=== PATIENT | male | born 1995 | race Caucasian/White ===

== ENCOUNTER 2022-10-13 00:27 | Emergency (ER) | payer OTHER ==
[~2022-10-13] VITALS: Ht 180.3 cm; Wt 61.3 kg
[2022-10-13] MEDS ORDERED: NS 1,000 ML IV ONE (00:45)
[2022-10-13] MEDS ORDERED: MULTIVITAMIN -ADULT INJECTION 10 ML, THIAMINE INJection 100 MG, FOLIC ACID 1 MG in NS 1... IV ONE (00:45)
[2022-10-13 01:03] LABS: HEMATOCRIT 43.6 % (42.0-52.0); HEMOGLOBIN 15.5 g/dl (13.5-17.5); MEAN CORPUSCULAR HEMOGLOBIN 28.9 pg (27.0-33.0); MEAN CORPUSCULAR HGB CONC 35.6 g/dl (32.0-36.5); MEAN CORPUSCULAR VOLUME 81.3 fl (80.0-96.0); PLATELET COUNT, AUTOMATED 326 10^3/uL (150-450); RED BLOOD COUNT 5.36 10^6/uL (4.30-6.10); WHITE BLOOD COUNT 6.9 10^3/uL (4.0-10.0)
[2022-10-13 01:26] LABS: ETHYL ALCOHOL (ETHANOL) 0.276 % (0.000-0.010)
[2022-10-13 01:28] LABS: ACETAMINOPHEN LEVEL < 2.0 UG/ML (10.0-20.0); ALBUMIN 4.8 G/DL (3.2-5.2); ALKALINE PHOSPHATASE 68 U/L (46-116); ALT/SGPT 23 U/L (7.0-40); AST/SGOT 14 U/L (<34); BILIRUBIN,DIRECT 0.2 MG/DL (<0.4); BILIRUBIN,TOTAL 0.6 MG/DL (0.3-1.2); BLOOD UREA NITROGEN 11 MG/DL (9-23); CALCIUM LEVEL 9.1 MG/DL (8.5-10.1); CARBON DIOXIDE LEVEL 24 MMOL/L (20-31); CHLORIDE LEVEL 103 MMOL/L (98-107); GLOMERULAR FILTRATION RATE > 60.0 (>60); GLUCOSE, FASTING 80 MG/DL (60-100); POTASSIUM SERUM 4.2 MMOL/L (3.5-5.1); SALICYLATE LEVEL < 3.0 MG/DL (<30); SODIUM LEVEL 141 MMOL/L (136-145); TOTAL PROTEIN 7.5 G/DL (5.7-8.2)
[2022-10-13 01:48] LABS: CPK CREATINE PHOSPHOKINASE 113 U/L (46-171)
[2022-10-13] MEDS ORDERED: ALPRAZolam 0.5 MG TAB PO ONE (03:25)
[2022-10-13] MEDS ORDERED: UNRESOLVED CLARIFICATION ENTRY XX STA (03:33)
[2022-10-13 07:27] VITALS: BP 126/77
[2022-10-13] MEDS ORDERED: LORazepam 2 MG TAB PO PRN (07:55)
[2022-10-13] MEDS ORDERED: FOLIC ACID 1MG TAB PO SCH (09:00)
[2022-10-13] MEDS ORDERED: MULTIVITAMINS/MINERALS THERAP 1 TAB PO SCH (09:00)
[2022-10-13] MEDS ORDERED: THIAMINE 100 MG TAB PO SCH (09:00)
[2022-10-13] MEDS ORDERED: HOME MED LIST COMPLETE! XX SCH (11:05)
== END 2022-10-13 14:18 | disposition home or self-care (01) ==
LOC: EDBD 00:27 → M ED 00:27
DX: F10.129 Alcohol abuse with intoxication, unspecified (principal); R45.851 Suicidal ideations; I45.19 Other right bundle-branch block; Z91.041 Radiographic dye allergy status
CPT/HCPCS: 80048; 80076; 80143; 82077; 82550; 84443; 85027; 87635; 93005; 96361; 96374; 99284; J3411